=== PATIENT | female | born 1985 | race Caucasian/White ===

== ENCOUNTER 2019-02-15 08:45 | Emergency (ER) | payer MEDICAID ==
[~2019-02-15] VITALS: Ht 162.6 cm; Wt 77.6 kg
[2019-02-15 09:14] VITALS: Ht 162.6 cm; Wt 77.6 kg
[2019-02-15 10:27] VITALS: BP 107/78
== END 2019-02-15 10:27 | disposition home or self-care (01) ==
LOC: ED 08:45
DX: O23.41 Unspecified infection of urinary tract in pregnancy, first trimester (principal); O99.351 Diseases of the nervous system complicating pregnancy, first trimester; R51 Headache; Z3A.12 12 weeks gestation of pregnancy